=== PATIENT | male | born 1960 | race Two or more races ===

== ENCOUNTER 2020-07-23 15:08 | Inpatient (IN) | payer OTHER ==
[~2020-07-23] VITALS: Ht 182.9 cm; Wt 125.3 kg
--- NOTE | 2020-07-23 15:09 | NUR ---
PT COVID POSITIVE. WENT TO HOSPITAL IN [facility] AFTER PT WAS HAVING TROUBLE TAKING 10 STEPS W/ SOB. PT WAS PLACED BY BIPAP THERE AND TRANSFERRED TO [facility]. PT WAS GIVEN ZOSYN, 5 UNITS INSULIN, 1 L NS, AND 1 MG [employer]IVAN STAFF RADIATION THERAPIST. BS [address] VS STAFF RADIATION THERAPIST HR 134, RR 54, BP 163/93, 90% ON BIPAP. PT PLACED ON [facility] BIPAP MACHINE. PT RESTING ON GURNEY. MEDICATED PER AUG. MONITORS IN PLACE. PT RR REMAINS 50'S. ERP DR. ADAME AT BEDSIDE FOR EVAL.
[2020-07-23] MEDS ORDERED: MORPHINE SULFATE 4 MG/ML, 1ML ONE ×2 (15:15→15:38)
[2020-07-23] MEDS ORDERED: INSULIN SQ (15:26)
[2020-07-23] MEDS ORDERED: LISI2.5T PO (15:26)
[2020-07-23] MEDS ORDERED: JENUVIA PO (15:26)
[2020-07-23] MEDS ORDERED: MORPHINE SULFATE 4 MG/ML, 1ML IVPush ONE ×2 (15:30→16:00)
[2020-07-23] MEDS ORDERED: SODIUM CHLORIDE 0.9% 1,000ML IVBOLUS ONE ×2 (15:30→19:00)
--- NOTE | 2020-07-23 15:41 | NUR ---
PT NOTED TO HAVE TEMP 100.4, RR 59 AND O2 SATS 88-90% ON BIPAP. ERP DR. ADAME NOTIFIED. PER ERP BRENDA LCOME ASSESS PT AGAIN AND TO RECHECK PT TEMP IN 30 MIN.
--- NOTE | 2020-07-23 15:47 | NUR ---
PT NOW SATING 91-93%. TO BE MEDICATED PER AUG.
[2020-07-23 16:01] LABS: MEAN CORPUSCULAR HEMOGLOBIN 26.6 pg (27.5-34.5); MEAN PLATELET VOLUME 8.8 fL (7.4-10.4); PLATELET COUNT 354 x10^3/uL (130-400); RED BLOOD COUNT 5.67 x10^6/uL (4.38-5.82); RED CELL DISTRIBUTION WIDTH 13.7 % (9.4-14.8)
--- NOTE | 2020-07-23 16:05 | NUR ---
PER ERP DR. ADAME WILL AWAIT ALL OF PT'S LAB ORDERED AND DISCUSS POC WITH THIS RN.
[2020-07-23 16:06] LABS: ALBUMIN 2.5 g/dL (3.4-5.0); CALCIUM 8.4 mg/dL (8.5-10.1); CHLORIDE 103 mmol/L (98-107)
[2020-07-23 16:13] LABS: ALANINE AMINOTRANSFERASE 29 U/L (12-78); ALKALINE PHOSPHATASE 41 U/L (45-117); BILIRUBIN,TOTAL 0.5 mg/dL (0.2-1.0); CREATININE 1.62 mg/dL (0.7-1.3); TOTAL PROTEIN 7.8 g/dL (6.4-8.2)
[2020-07-23 16:14] LABS: ANION GAP 23 mmol/L (5-15)
[2020-07-23 16:15] LABS: C-REACTIVE PROTEIN, QUANT > 19.00 mg/dL (0.02-0.49)
--- NOTE | 2020-07-23 16:15 | NUR ---
PT URINATED UPON ARRIVAL TO ED. PT CURRENTLY UNABLE TO ATTEMPT FOR A UA.
--- NOTE | 2020-07-23 16:26 | NUR ---
PER ERP DR. ADAME HOLD OFF ON INTUBATION AT THIS TIME PT IS ACIDODIC AND CURRENTLY MAINTAINING SATS. PER ERP PT COULD VERY WELL BE IN DKA AND HAS A PH 7.110 AND INTUBATING COULD MAKE ACIDOSIS WORSE. PT CURRENTLY TACHY AT 103 AND MAINTAINING SATS AT 91% ON BIPAP. RR REMAINS BETWEEN 45-53
[2020-07-23] MEDS ORDERED: SODIUM CHLORIDE 0.9% 1,000 ML IV ONE (16:30)
[2020-07-23] MEDS ORDERED: KETAMINE 10 MG/ML, 20ML ONE (16:34)
[2020-07-23] MEDS ORDERED: PROPOFOL 100 ML IV ONE ×2 (16:34→20:12)
--- NOTE | 2020-07-23 16:41 | NUR ---
PER ERP DR. ADAME PT TO BE INTUBATED.
--- NOTE | 2020-07-23 16:44 | NUR ---
REPORT TO CECELIA GALARZA.
[2020-07-23] MEDS: KETAMINE 100 MG/ML, 5ML IV ONE ×2 (16:55→17:17)
--- NOTE | 2020-07-23 17:15 | NUR ---
REPORT FROM CECELIA GALARZA.
[2020-07-23] MEDS: PROPOFOL 100 ML IV PRN ×3 (17:16→23:45)
[2020-07-23] MEDS ORDERED: SUCCINYLCHOLINE 20 MG/ML, 10ML IVPush ONE (17:30)
--- NOTE | 2020-07-23 17:35 | NUR ---
PT INTUBATED BY ERP DR. DEEP Meléndez/ GEOVANNI, RN AT BEDSIDE FOR ASSISTANCE.
[2020-07-23 17:44] LABS: MICROSCOPIC INDICATED
--- NOTE | 2020-07-23 18:10 | NUR ---
DAUGHTERS CALLED WILLIAM CANDY [phone] AND SIGIFREDO IBARRANANDEZ [phone] AND WAS PROVIDED W/ INFORAMATION IN REGARDS TO PT GETTING SICK AND STARTED FEELING WORSE X 2 DAYS AGO AND HAD INCREASES IN RR AND DYSPNEA. PT FINALLY AGREED TO GO TO ED THIS AM. PER FAMILY THEY HAVE BEEN SICK FOR A FEW DAYS W/ COVID.
[2020-07-23 18:35] LABS: MD YES
--- NOTE | 2020-07-23 18:36 | NUR ---
PER ERP NO NEED FOR OTHER IV ABX AT THIS TIME PT RECEIVED ZOSYN POLICY OFFICER.
[2020-07-23 18:37] LABS: <PLATELET ESTIMATE> ADEQUATE; <PLT MORPHOLOGY> NORMAL PLT MORPH; <RBC MORPHOLOGY> NORMAL; BAND#(MANUAL) 0.99 x10^3/uL; BANDS%(MANUAL) 5 % (0-7); LYMPHS% (MANUAL) 2 % (22-44); METAMYELOCYTES% (MANUAL) 1 % (0-1); MONOS#(MANUAL) 0.99 x10^3/uL (0.3-2.7); MONOS% (MANUAL) 5 % (2-9); SEG#(MANUAL) 17.23 x10^3/uL (1.8-6.8); SEGS% (MANUAL) 87 % (42-75)
[2020-07-23] MEDS ORDERED: PIPERACILLIN/TAZO/PMX 3.375GM 50 ML ONE (18:57)
[2020-07-23] MEDS ORDERED: DEXTROSE 50%, 50ML SYRINGE IVPush PRN (19:00)
[2020-07-23] MEDS ORDERED: PHARMACY MAY ADJ FOR RENAL FX MC PRN (19:00)
[2020-07-23] MEDS ORDERED: VANCOMYCIN PER PHARMACY MC PRN (19:00)
[2020-07-23] MEDS ORDERED: DEXTROSE 4 GM TAB.CHEW PO PRN (19:00)
[2020-07-23] MEDS ORDERED: GLUCAGON 1 MG IM PRN (19:00)
[2020-07-23] MEDS ORDERED: VANCOMYCIN PMX 1GM/200ML 200 ML IV ONE (19:00)
[2020-07-23] MEDS: PIPERACILLIN/TAZO/PMX 3.375GM 50 ML IV SCH (19:03)
--- NOTE | 2020-07-23 19:12 | NUR ---
YELLOW SLIP SENT TO PHARMACY FOR MEDS PER AUG.
[2020-07-23] MEDS ORDERED: HEPARIN 5,000 UNITS/ML, 1ML ONE (19:13)
[2020-07-23] MEDS: HEPARIN 5,000 UNITS/ML, 1ML SQ SCH (19:20)
[2020-07-23] MEDS ORDERED: PHARMACOKINETIC MONITORING MC PRN (19:30)
[2020-07-23] MEDS ORDERED: PHARMACOKINETIC CONSULTATION MC ONE (19:30)
--- NOTE | 2020-07-23 19:30 | NUR ---
PT NOTED TO HAVE INCREASING TEMP OF 100.[address] FOR FEBRILE TEMP. ATTEMPTED TO CALL DR. FOWLER FOR ORDERS. NO ANSWER. MESSAGE LEFT.
[2020-07-23 19:33] LABS: ANION GAP 19 mmol/L (5-15); CALCIUM 8.3 mg/dL (8.5-10.1); CHLORIDE 104 mmol/L (98-107); CREATININE 1.92 mg/dL (0.7-1.3)
[2020-07-23 19:37] LABS: TROPONIN I 0.041 ng/mL (0.000-0.045)
[2020-07-23] MEDS ORDERED: VANCOMYCIN 2,500 MG in SODIUM CHLORIDE 0.9% 500 ML IV ONE (19:45)
--- NOTE | 2020-07-23 20:01 | NUR ---
ERP AT BEDSIDE PLACING CENTRAL LINE. NOTIFIED OF NEED FOR RECTAL SUPPOSITORY FOR RISING CORE TEMP.
[2020-07-23] MEDS ORDERED: ACETAMINOPHEN 650 MG SUPP ONE (20:26)
[2020-07-23] MEDS ORDERED: ACETAMINOPHEN 650 MG SUPP PR ONE (20:30)
[2020-07-23] MEDS: REGULAR INSULIN 100 UNITS in SODIUM CHLORIDE 0.9% 99 ML IV PRN (20:33)
[2020-07-23] MEDS: SODIUM CHLORIDE FLUSH 10ML SYR IVF SCH (20:39)
--- NOTE | 2020-07-23 20:49 | NUR ---
REPORT GIVEN TO PAULINE WATSON RN. ALL QUESTIONS ANSWERED. THIS RN TO TRANSPORT PT TO ICU W/ ED ECH AND ZOLL MONITOR
[2020-07-23 20:58] VITALS: BP 185/87
[2020-07-23] MEDS: NOREPINEPHRINE 8 MG in SODIUM CHLORIDE 0.9% 242 ML IV PRN ×2 (21:54→23:43)
[2020-07-23] MEDS: SODIUM CHLORIDE 0.9% 1,000 ML IV SCH (22:06)
[2020-07-23 22:12] LABS: RAPID INFLUENZA A Negative (Negative); RAPID INFLUENZA B Negative (Negative)
[2020-07-23] MEDS ORDERED: ACETAMINOPHEN 650 MG SUPP PR PRN (23:00)
[2020-07-23 23:45] LABS: ANION GAP 16 mmol/L (5-15); CALCIUM 7.8 mg/dL (8.5-10.1); CHLORIDE 112 mmol/L (98-107); CREATININE 2.38 mg/dL (0.7-1.3)
[2020-07-24] MEDS: NOREPINEPHRINE 8 MG in SODIUM CHLORIDE 0.9% 242 ML IV PRN ×3 (01:31→05:26)
[2020-07-24] MEDS: PIPERACILLIN/TAZO/PMX 3.375GM 50 ML IV SCH ×3 (01:36→13:05)
[2020-07-24] MEDS: HEPARIN 5,000 UNITS/ML, 1ML SQ SCH ×3 (03:21→19:54)
[2020-07-24] MEDS: PROPOFOL 100 ML IV PRN ×7 (03:30→22:18)
[2020-07-24 04:12] LABS: ALBUMIN 1.8 g/dL (3.4-5.0); ANION GAP 16 mmol/L (5-15); CALCIUM 7.3 mg/dL (8.5-10.1); CHLORIDE 113 mmol/L (98-107)
[2020-07-24 04:16] LABS: ALANINE AMINOTRANSFERASE 21 U/L (12-78); ALKALINE PHOSPHATASE 41 U/L (45-117); BILIRUBIN,TOTAL 1.2 mg/dL (0.2-1.0); CREATININE 2.65 mg/dL (0.7-1.3); TOTAL PROTEIN 5.7 g/dL (6.4-8.2)
[2020-07-24 04:32] LABS: MEAN CORPUSCULAR HEMOGLOBIN 27.2 pg (27.5-34.5); MEAN CORPUSCULAR HGB CONC 33.5 g/dL (33.2-36.2); MEAN PLATELET VOLUME 9.3 fL (7.4-10.4); PLATELET COUNT 298 x10^3/uL (130-400); RED BLOOD COUNT 5.21 x10^6/uL (4.38-5.82)
[2020-07-24] MEDS: SODIUM CHLORIDE 0.9% 1,000 ML IV SCH ×4 (05:00→15:00)
[2020-07-24 05:45] LABS: MD YES
[2020-07-24 05:57] LABS: <PLT MORPHOLOGY> NORMAL PLT MORPH; <RBC MORPHOLOGY> NORMAL; BAND#(MANUAL) 1.92 x10^3/uL; BANDS%(MANUAL) 31 % (0-7); LYMPH#(MANUAL) 0.68 x10^3/uL (1-3.4); LYMPHS% (MANUAL) 11 % (22-44); METAMYELOCYTES# (MANUAL) 0.25 x10^3/uL (0-0); METAMYELOCYTES% (MANUAL) 4 % (0-1); MONOS#(MANUAL) 0.19 x10^3/uL (0.3-2.7); MONOS% (MANUAL) 3 % (2-9); MYELOCYTES# (MANUAL) 0.12 x10^3/uL (0-0); MYELOCYTES% (MANUAL) 2 % (0-0); SEG#(MANUAL) 3.04 x10^3/uL (1.8-6.8); SEGS% (MANUAL) 49 % (42-75)
[2020-07-24 05:58] LABS: <PLATELET ESTIMATE> ADEQUATE
[2020-07-24 05:59] LABS: TROPONIN I 0.103 ng/mL (0.000-0.045)
[2020-07-24] MEDS: D5%-0.45NACL+KCL 20MEQ 1,000 ML IV SCH ×2 (06:21→11:00)
[2020-07-24] MEDS: REGULAR INSULIN 100 UNITS in SODIUM CHLORIDE 0.9% 99 ML IV PRN (08:03)
[2020-07-24] MEDS: NOREPINEPHRINE 32 MG in SODIUM CHLORIDE 0.9% 218 ML IV PRN ×2 (08:09→13:45)
[2020-07-24] MEDS ORDERED: VASOPRESSIN 20 UNIT in SODIUM CHLORIDE 0.9% 99 ML IV PRN (08:30)
[2020-07-24] MEDS: SODIUM CHLORIDE FLUSH 10ML SYR IVF SCH ×2 (09:00→21:15)
[2020-07-24] MEDS: MIDAZOLAM 1 MG/ML, 5ML IVPush PRN ×3 (10:30→16:43)
[2020-07-24] MEDS: SODIUM BICARBONATE 8.4% 150 MEQ in DEXTROSE 5% 1,000 ML IV SCH ×3 (10:47→22:53)
[2020-07-24 10:49] LABS: ANION GAP 11 mmol/L (5-15); CALCIUM 7.5 mg/dL (8.5-10.1); CHLORIDE 117 mmol/L (98-107); CREATININE 2.98 mg/dL (0.7-1.3)
[2020-07-24] MEDS: FENTANYL PF 2,500 MCG in SODIUM CHLORIDE 0.9% 200 ML IV PRN (13:02)
[2020-07-24] MEDS ORDERED: REMDESIVIR 100 MG in SODIUM CHLORIDE 0.9% 250 ML IVPB ONE (14:30)
[2020-07-24] MEDS: CHOLECALCIFEROL 5,000u TAB PO SCH (14:50)
[2020-07-24] MEDS: THIAMINE 100MG TABLET PO SCH (14:50)
[2020-07-24] MEDS: ZINC SULFATE 220 MG CAPSULE PO SCH (14:50)
[2020-07-24] MEDS: DEXAMETHASONE 4 MG/ML, 1ML IV SCH (14:50)
--- NOTE | 2020-07-24 15:28 | NUR ---
TF RECOMMENDATION IF NEEDED: on propofol goal is promote @ 70 ml/hr; off propofol goal is promote @ 80 ml/hr. Start with trickle and slow advancement Addendum: 07/24/20 at [address] Amended: Links added.
[2020-07-24] MEDS ORDERED: VECURONIUM 50 MG in SODIUM CHLORIDE 0.9% 50 ML IV SCH (18:00)
[2020-07-24] MEDS ORDERED: VECURONIUM 10 MG IVPush ONE (18:00)
[2020-07-24] MEDS ORDERED: VECURONIUM 10 MG ONE (18:07)
[2020-07-24] MEDS: PIPERACILLIN/TAZO/PMX 2.25GM 50 ML IV SCH (21:14)
[2020-07-24] MEDS: ASCORBIC ACID 500 MG TABLET PO SCH (21:14)
[2020-07-25] MEDS: PROPOFOL 100 ML IV PRN ×7 (01:05→22:30)
[2020-07-25] MEDS: REGULAR INSULIN 100 UNITS in SODIUM CHLORIDE 0.9% 99 ML IV PRN ×2 (02:15→08:08)
[2020-07-25] MEDS: PIPERACILLIN/TAZO/PMX 2.25GM 50 ML IV SCH ×4 (03:11→20:27)
[2020-07-25] MEDS: HEPARIN 5,000 UNITS/ML, 1ML SQ SCH ×3 (04:13→20:27)
[2020-07-25] MEDS: SODIUM BICARBONATE 8.4% 150 MEQ in DEXTROSE 5% 1,000 ML IV SCH (04:21)
[2020-07-25] MEDS: NOREPINEPHRINE 32 MG in SODIUM CHLORIDE 0.9% 218 ML IV PRN ×2 (05:31→20:56)
[2020-07-25 06:27] LABS: CHLORIDE 102 mmol/L (98-107)
[2020-07-25 06:36] LABS: ALBUMIN 2.5 g/dL (3.4-5.0); ALKALINE PHOSPHATASE 26 U/L (45-117); ANION GAP 11 mmol/L (5-15); CALCIUM 6.7 mg/dL (8.5-10.1); CREATININE 3.23 mg/dL (0.7-1.3); TOTAL PROTEIN 5.6 g/dL (6.4-8.2); VANCOMYCIN,RANDOM 23.5 mcg/mL
[2020-07-25 06:49] LABS: ALANINE AMINOTRANSFERASE 24 U/L (12-78)
[2020-07-25 06:53] LABS: MEAN CORPUSCULAR HEMOGLOBIN 27.5 pg (27.5-34.5); MEAN CORPUSCULAR HGB CONC 35.1 g/dL (33.2-36.2); MEAN PLATELET VOLUME 8.6 fL (7.4-10.4); PLATELET COUNT 140 x10^3/uL (130-400); RED BLOOD COUNT 4.44 x10^6/uL (4.38-5.82); RED CELL DISTRIBUTION WIDTH 13.7 % (9.4-14.8)
[2020-07-25 07:23] LABS: MD YES
[2020-07-25 07:25] LABS: <PLATELET ESTIMATE> ADEQUATE; <PLT MORPHOLOGY> NORMAL PLT MORPH; <RBC MORPHOLOGY> NORMAL; BAND#(MANUAL) 7.52 x10^3/uL; BANDS%(MANUAL) 47 % (0-7); LYMPH#(MANUAL) 0.64 x10^3/uL (1-3.4); LYMPHS% (MANUAL) 4 % (22-44); METAMYELOCYTES# (MANUAL) 0.48 x10^3/uL (0-0); METAMYELOCYTES% (MANUAL) 3 % (0-1); MONOS#(MANUAL) 0.48 x10^3/uL (0.3-2.7); MONOS% (MANUAL) 3 % (2-9); MYELOCYTES# (MANUAL) 0.16 x10^3/uL (0-0); MYELOCYTES% (MANUAL) 1 % (0-0); SEG#(MANUAL) 6.72 x10^3/uL (1.8-6.8); SEGS% (MANUAL) 42 % (42-75)
[2020-07-25] MEDS: ASCORBIC ACID 500 MG TABLET PO SCH ×2 (08:09→20:27)
[2020-07-25] MEDS: CHOLECALCIFEROL 5,000u TAB PO SCH (08:09)
[2020-07-25] MEDS: ZINC SULFATE 220 MG CAPSULE PO SCH (08:09)
[2020-07-25] MEDS: THIAMINE 100MG TABLET PO SCH (08:09)
[2020-07-25] MEDS: SODIUM CHLORIDE FLUSH 10ML SYR IVF SCH ×2 (08:10→20:29)
[2020-07-25] MEDS: DEXAMETHASONE 4 MG/ML, 1ML IV SCH (08:10)
[2020-07-25] MEDS ORDERED: POTASSIUM CHLORIDE 40 MEQ in SODIUM CHLORIDE 0.9% 500 ML IV ONE (09:30)
[2020-07-25] MEDS ORDERED: POTASSIUM CHLORIDE 40 MEQ in SODIUM CHLORIDE 0.9% 100 ML IV ONE (10:00)
[2020-07-25 13:07] LABS: CALCIUM 6.8 mg/dL (8.5-10.1)
[2020-07-25] MEDS: FENTANYL PF 2,500 MCG in SODIUM CHLORIDE 0.9% 200 ML IV PRN (15:54)
[2020-07-25] MEDS: ALBUMIN HUMAN 25% 100 ML IV PRN ×2 (17:04→17:37)
[2020-07-25] MEDS: INSULIN LISPRO 100 UNITS/ML, PEN SQ-INSULIN SCH (20:54)
[2020-07-25] MEDS ORDERED: VANCOMYCIN 2,200 MG in SODIUM CHLORIDE 0.9% 500 ML IV ONE (22:00)
[2020-07-26] MEDS: PROPOFOL 100 ML IV PRN ×6 (01:35→21:57)
[2020-07-26] MEDS: PIPERACILLIN/TAZO/PMX 2.25GM 50 ML IV SCH ×4 (02:07→20:06)
[2020-07-26] MEDS: HEPARIN 5,000 UNITS/ML, 1ML SQ SCH ×3 (04:28→20:04)
[2020-07-26 04:58] LABS: ALBUMIN 2.7 g/dL (3.4-5.0); ANION GAP 16 mmol/L (5-15); CALCIUM 6.8 mg/dL (8.5-10.1); CHLORIDE 98 mmol/L (98-107)
[2020-07-26 05:02] LABS: ALKALINE PHOSPHATASE 46 U/L (45-117); BILIRUBIN,TOTAL 1.7 mg/dL (0.2-1.0); CREATININE 4.23 mg/dL (0.7-1.3)
[2020-07-26 05:14] LABS: MEAN CORPUSCULAR HEMOGLOBIN 27.8 pg (27.5-34.5); MEAN CORPUSCULAR HGB CONC 34.9 g/dL (33.2-36.2); MEAN PLATELET VOLUME 9.1 fL (7.4-10.4); PLATELET COUNT 160 x10^3/uL (130-400); RED BLOOD COUNT 4.35 x10^6/uL (4.38-5.82); RED CELL DISTRIBUTION WIDTH 14.1 % (9.4-14.8)
[2020-07-26 05:22] LABS: ALANINE AMINOTRANSFERASE 35 U/L (12-78)
[2020-07-26] MEDS: INSULIN LISPRO 100 UNITS/ML, PEN SQ-INSULIN SCH ×4 (06:18→20:09)
[2020-07-26 06:19] LABS: MD YES
[2020-07-26 06:21] LABS: BAND#(MANUAL) 6.27 x10^3/uL; BANDS%(MANUAL) 22 % (0-7); LYMPH#(MANUAL) 1.43 x10^3/uL (1-3.4); LYMPHS% (MANUAL) 5 % (22-44); MONOS#(MANUAL) 0.29 x10^3/uL (0.3-2.7); MONOS% (MANUAL) 1 % (2-9); SEG#(MANUAL) 20.52 x10^3/uL (1.8-6.8); SEGS% (MANUAL) 72 % (42-75)
[2020-07-26 06:22] LABS: <PLATELET ESTIMATE> ADEQUATE; <PLT MORPHOLOGY> NORMAL PLT MORPH; <RBC MORPHOLOGY> NORMAL; TOXIC GRAN 1+
[2020-07-26] MEDS ORDERED: VECURONIUM 10 MG IVPush ONE (08:00)
[2020-07-26] MEDS: DEXAMETHASONE 4 MG/ML, 1ML IV SCH (08:15)
[2020-07-26] MEDS: ESOMEPRAZOLE 40 MG IV IVPush SCH (08:16)
[2020-07-26] MEDS: ZINC SULFATE 220 MG CAPSULE PO SCH (09:47)
[2020-07-26] MEDS: ASCORBIC ACID 500 MG TABLET PO SCH ×2 (09:47→20:06)
[2020-07-26] MEDS: THIAMINE 100MG TABLET PO SCH (09:47)
[2020-07-26] MEDS: SODIUM CHLORIDE FLUSH 10ML SYR IVF SCH ×2 (09:47→20:10)
[2020-07-26] MEDS: CHOLECALCIFEROL 5,000u TAB PO SCH (09:47)
[2020-07-26] MEDS ORDERED: METHYLNALTREXONE 12 MG/0.6 ML SYR SQ SCH (11:00)
[2020-07-26] MEDS ORDERED: REMDESIVIR 50 MG in SODIUM CHLORIDE 0.9% 250 ML IVPB SCH (14:30)
[2020-07-26] MEDS: FENTANYL PF 2,500 MCG in SODIUM CHLORIDE 0.9% 200 ML IV PRN ×2 (15:09→21:56)
[2020-07-26] MEDS: ALBUMIN HUMAN 25% 100 ML IV PRN (18:40)
[2020-07-26] MEDS: NOREPINEPHRINE 32 MG in SODIUM CHLORIDE 0.9% 218 ML IV PRN (21:04)
[2020-07-27] MEDS: PROPOFOL 100 ML IV PRN ×3 (00:44→09:01)
[2020-07-27] MEDS: PIPERACILLIN/TAZO/PMX 2.25GM 50 ML IV SCH ×2 (02:20→07:47)
[2020-07-27] MEDS ORDERED: EPINEPHRINE SYRINGE 0.1 MG/ML, 10ML ONE (03:00)
[2020-07-27] MEDS: HEPARIN 5,000 UNITS/ML, 1ML SQ SCH ×2 (03:20→11:16)
[2020-07-27 03:43] LABS: MEAN CORPUSCULAR HEMOGLOBIN 27.9 pg (27.5-34.5); MEAN CORPUSCULAR HGB CONC 34.6 g/dL (33.2-36.2); MEAN PLATELET VOLUME 9.3 fL (7.4-10.4); PLATELET COUNT 179 x10^3/uL (130-400); RED BLOOD COUNT 4.53 x10^6/uL (4.38-5.82); RED CELL DISTRIBUTION WIDTH 14.6 % (9.4-14.8)
[2020-07-27 04:20] LABS: MD YES
[2020-07-27 04:22] LABS: <PLATELET ESTIMATE> ADEQUATE; <PLT MORPHOLOGY> NORMAL PLT MORPH; <RBC MORPHOLOGY> NORMAL; BAND#(MANUAL) 4.52 x10^3/uL; BANDS%(MANUAL) 14 % (0-7); LYMPH#(MANUAL) 0.65 x10^3/uL (1-3.4); LYMPHS% (MANUAL) 2 % (22-44); METAMYELOCYTES# (MANUAL) 0.65 x10^3/uL (0-0); METAMYELOCYTES% (MANUAL) 2 % (0-1); MONOS#(MANUAL) 0.32 x10^3/uL (0.3-2.7); MONOS% (MANUAL) 1 % (2-9); MYELOCYTES# (MANUAL) 0.32 x10^3/uL (0-0); MYELOCYTES% (MANUAL) 1 % (0-0); SEG#(MANUAL) 25.84 x10^3/uL (1.8-6.8); SEGS% (MANUAL) 80 % (42-75)
[2020-07-27 04:43] LABS: ALBUMIN 2.5 g/dL (3.4-5.0); ANION GAP 16 mmol/L (5-15); CALCIUM 7.4 mg/dL (8.5-10.1); CHLORIDE 95 mmol/L (98-107); CREATININE 4.64 mg/dL (0.7-1.3)
[2020-07-27 04:53] LABS: ALKALINE PHOSPHATASE 119 U/L (45-117); BILIRUBIN,TOTAL 3.5 mg/dL (0.2-1.0); TOTAL PROTEIN 6.2 g/dL (6.4-8.2)
[2020-07-27] MEDS: NOREPINEPHRINE 32 MG in SODIUM CHLORIDE 0.9% 218 ML IV PRN (05:00)
[2020-07-27 05:07] LABS: ALANINE AMINOTRANSFERASE 958 U/L (12-78)
[2020-07-27] MEDS: INSULIN LISPRO 100 UNITS/ML, PEN SQ-INSULIN SCH (06:02)
[2020-07-27] MEDS: ZINC SULFATE 220 MG CAPSULE PO SCH (07:44)
[2020-07-27] MEDS: ASCORBIC ACID 500 MG TABLET PO SCH (07:45)
[2020-07-27] MEDS: DEXAMETHASONE 4 MG/ML, 1ML IV SCH (07:45)
[2020-07-27] MEDS: CHOLECALCIFEROL 5,000u TAB PO SCH (07:45)
[2020-07-27] MEDS: SODIUM CHLORIDE FLUSH 10ML SYR IVF SCH (07:45)
[2020-07-27] MEDS: THIAMINE 100MG TABLET PO SCH (07:45)
[2020-07-27] MEDS: ESOMEPRAZOLE 40 MG IV IVPush SCH (07:45)
[2020-07-27] MEDS ORDERED: INSULIN GLARGINE 100 UNITS/ML, PEN SQ-INSULIN SCH ×2 (08:00→09:00)
[2020-07-27] MEDS ORDERED: CALCIUM CHLORIDE 13.6 MEQ in SODIUM CHLORIDE 0.9% 100 ML IV ONE (08:00)
[2020-07-27] MEDS ORDERED: CALCIUM GLUCONATE 9.2 MEQ in SODIUM CHLORIDE 0.9% 100 ML IV ONE (08:30)
[2020-07-27] MEDS ORDERED: INSULIN LISPRO 100 UNITS/ML, PEN SQ-INSULIN SCH ×2 (09:00→11:00)
[2020-07-27] MEDS ORDERED: SODIUM BICARB 8.4%, 50ML SYRINGE ONE ×2 (09:44→13:21)
[2020-07-27] MEDS ORDERED: SODIUM BICARBONATE 8.4% 150 MEQ in DEXTROSE 5% 1,000 ML IV SCH (13:30)
[2020-07-27] MEDS ORDERED: PHENYLEPHRINE 50 MG in SODIUM CHLORIDE 0.9% 245 ML IV PRN (13:30)
[2020-07-27] MEDS ORDERED: EPINEPHRINE 5 MG in SODIUM CHLORIDE 0.9% 245 ML IV PRN (14:00)
== END 2020-07-27 16:35 | disposition expired | DRG 871 ==
LOC: SUATTDRO 16:27 → ED 19:08 → EDIP 19:19 → ICU 21:08
PROVIDERS: ADMIT Internal Medicine; ATTEND Internal Medicine
PROC: 02HV33Z Insertion of Infusion Device into Superior Vena Cava, Percutaneous Approach (ICD-10-PCS; principal; 2020-07-23)
PROC: 0BH17EZ Insertion of Endotracheal Airway into Trachea, Via Natural or Artificial Opening (ICD-10-PCS; 2020-07-23)
PROC: 5A09357 Assistance with Respiratory Ventilation, Less than 24 Consecutive Hours, Continuous Positive Airway Pressure (ICD-10-PCS; 2020-07-23)
PROC: 5A1945Z Respiratory Ventilation, 24-96 Consecutive Hours (ICD-10-PCS; 2020-07-23)
PROC: 02HV33Z Insertion of Infusion Device into Superior Vena Cava, Percutaneous Approach (ICD-10-PCS; 2020-07-23)
PROC: B548ZZA Ultrasonography of Superior Vena Cava, Guidance (ICD-10-PCS; 2020-07-23)
PROC: XW033E5 Introduction of Remdesivir Anti-infective into Peripheral Vein, Percutaneous Approach, New Technology Group 5 (ICD-10-PCS; 2020-07-23)
PROC: 02HV33Z Insertion of Infusion Device into Superior Vena Cava, Percutaneous Approach (ICD-10-PCS; 2020-07-24)
PROC: 5A1D70Z Performance of Urinary Filtration, Intermittent, Less than 6 Hours Per Day (ICD-10-PCS; 2020-07-25)
PROC: 5A1D70Z Performance of Urinary Filtration, Intermittent, Less than 6 Hours Per Day (ICD-10-PCS; 2020-07-26)
PROC: 03HY33Z Insertion of Infusion Device into Upper Artery, Percutaneous Approach (ICD-10-PCS; 2020-07-27)
DX: A41.89 Other specified sepsis (principal); E11.10 Type 2 diabetes mellitus with ketoacidosis without coma; G93.41 Metabolic encephalopathy; J12.82 Pneumonia due to coronavirus disease 2019; J80 Acute respiratory distress syndrome; K72.00 Acute and subacute hepatic failure without coma; N17.0 Acute kidney failure with tubular necrosis; R65.21 Severe sepsis with septic shock; U07.1 COVID-19; E87.1 Hypo-osmolality and hyponatremia; Z99.11 Dependence on respirator [ventilator] status; D64.9 Anemia, unspecified; E83.51 Hypocalcemia; E87.5 Hyperkalemia; E87.6 Hypokalemia; I10 Essential (primary) hypertension; I95.81 Postprocedural hypotension; Z99.2 Dependence on renal dialysis; Z79.899 Other long term (current) drug therapy; Z79.891 Long term (current) use of opiate analgesic; Z79.4 Long term (current) use of insulin; Z79.01 Long term (current) use of anticoagulants
CPT/HCPCS: 36415; 36556; 36600; 71045; 76700; 76937; 77001; 80048; 80053; 80202; 81001; 82140; 82150; 82306; 82310; 82330; 82533; 82550; 82728; 82803; 82962; 83540; 83550; 83605; 83615; 83690; 83735; 83970; 84100; 84145; 84484; 84550; 85025; 86140; 86705; 86706; 87040; 87070; 87081; 87205; 87340; 87400; 90935; 92950; 93005; 94002; 94003; 94660; 96374; 96375; 96376; 99291; G0378; J1100; J1644; J1815; J2250; J2543; J2704; J3370; J3480; J7030; J7070; P9047; C1751; J0330; J1642; J2270; J7040; J7050; U0003